=== PATIENT | female | born 1950 | race Caucasian/White ===

== ENCOUNTER 2022-01-23 12:11 | Day surgery (SDC) | payer MEDICARE, OTHER ==
--- NOTE | 2022-01-23 09:37 | HP ---
HISTORY OF PRESENT ILLNESS: This is a patient who presents for colonoscopy and EGD. She has had some reflux as well as indigestion symptoms. Otherwise no abdominal pain, no bleeding, no dysuria, no hematuria, no fever, no shortness of breath, no chest pain, no weight loss. Her bowel movements have been normal. She is also due for screening and has been referred by her primary care provider for screening as well. PAST MEDICAL/SURGICAL HISTORY: Includes arrhythmia, neuropathy. History of breast cancer. She has had a right mastectomy. Hysterectomy. Sinus surgery. Cholecystectomy. CVA. PAST SURGICAL HISTORY: MEDICATIONS: Please see the medication reconciliation. She is on Plavix and has been placed on Lovenox per neurologist. ALLERGIES: LATEX. SOCIAL HISTORY: No tobacco. No alcohol use. FAMILY HISTORY: Mom with cervical cancer. Sister with breast cancer. Brother with lung cancer. Brother with brain cancer. Other members with coronary artery disease. PHYSICAL EXAMINATION: GENERAL: No acute distress. CVS: Regular rate and rhythm. PULMONARY: Nonlabored respirations. ABDOMEN: Soft, nontender, nondistended. EXTREMITIES: Within normal limits. DIAGNOSIS: Reflux, indigestion, due for colon screening. PLAN: EGD and colonoscopy.
[~2022-01-23 12:11] MED LIST: Lactated Ringers 1,000 ML IV SCH
[2022-01-23] MEDS ORDERED: Lactated Ringers 1,000 ML IV ONE ×2 (12:29→15:19)
[2022-01-23] MEDS ORDERED: Versed 2 MG/2 ML Injection ONE (14:17)
[2022-01-23] MEDS ORDERED: DIPRIVAN 200 MG/20 ML IV ONE ×3 (14:17→15:06)
[2022-01-23] MEDS ORDERED: PHENYLEPHRINE HCL ONE (14:49)
[2022-01-23] MEDS ORDERED: GlucaGen 1 MG ONE (15:10)
[2022-01-23 16:03] VITALS: O2SAT 96
[2022-01-23 16:34] VITALS: BP 142/77; PULSE 80
[2022-01-23] MEDS ORDERED: Sodium Chloride 0.9% 10 ML FLUSH Syringe PORT FLUSH PRN (16:39)
--- NOTE | 2022-01-24 10:19 | OP ---
PROCEDURE DATE/TIME: 01/23/2022 1417 PREOPERATIVE DIAGNOSES: 1) Screening for colonoscopy. 2) Reflux, indigestion for EGD. POSTOPERATIVE DIAGNOSES: 1) Gastritis. 2) Peptic ulcer disease. 3) Small hiatal hernia. 4) Colonic polyp. 5) Hemorrhoid. 6) Diverticulosis (minimal). 7) Mild focal hepatic flexure colitis. PROCEDURES: 1) EGD with biopsies. 2) Colonoscopy with cold snare polypectomy. 3) Cold forceps polypectomy. 4) Cold forceps biopsies. 5) Clip placement. PROCEDURE PERFORMED BY: Lesvia Soto M.D. ANESTHESIA: MAC. ESTIMATED BLOOD LOSS: Minimal. COMPLICATIONS: None. SPECIMENS: 1) Gastroesophageal junction at 36 cm; rule out Guzman's disease. 2) Distal esophagus; rule out Zahida. 3) Antral biopsy; rule out Helicobacter pylori. 4) Cecal polyp x2. 5) Hepatic flexure colitis biopsy. HISTORY: This is a patient who for EGD and colonoscopy for the above mentioned diagnoses. Risks, benefits, alternatives, H&P, consent have all been reviewed with her and confirmed. She has held her Plavix. Her Lovenox was held as of yesterday per neurology. She has been appropriately cleared for the procedure. The patient was personally seen by myself preoperatively. H&P, consent re-reviewed and confirmed with her. DESCRIPTION OF PROCEDURE: She was then brought back to the endoscopy suite, laid in the left lateral decubitus position. A complete time out is performed. The scope was inserted into the mouth, oropharynx, down to the esophagus, stomach and duodenum. The duodenum was normal this was visualized to at least the level of D2. The scope was then withdrawn back into the stomach. The patient had some gastritis as well as multiple small ulcers with central craters. At least one ulcer had a small clot that was not able to be washed off. There were also small amounts of old blood in the stomach. I took biopsies in the antrum to rule out Helicobacter pylori and these were sent to pathology and all sites were hemostatic. On a retroflex view, the patient has a small hiatal hernia. She also has some gastritis but there were no other findings and no masses. The scope was then carefully withdrawn back into the distal esophagus. She does have some reflux changes here consistent with esophagitis. I biopsied her to rule out Guzman's with cold forceps and then I took another separate biopsy to rule out Zahida. She has a very small amount of mucous here. I have a very low suspicion for Zahida but we will test this since I do think it is still within the differential this site looked hemostatic as well. The scope is then fully withdrawn. The remainder of her esophagus looked normal and the patient tolerated the procedure well. She was then repositioned for colonoscopy. First, a rectal exam was done. She does have some mildly enlarged hemorrhoids as well as anal tag that appears completely benign and small. The scope is then inserted and gently advanced to the level of the cecum. It was guided easily into the cecum. Her prep however was fair on Aronchick scale which is still satisfactory but fair. She did have quite a bit of liquid stool that was standing that we did have to try to irrigate. Overall, I did not see any large or medium-sized lesions. A very small lesion could be missed because of the prep but I did have a satisfactory review and the majority of the mucosa was able to be seen. As we carefully withdrew the scope, I did identify two polyps and these were in the cecum. They were slightly erythematous, inflammatory appearing. The first one was only about 2 mm in size and was taken with cold forceps in entirety and sent to pathology. The second was immediately under this and this one was about 2 x 2 mm and this was taken with cold snare in entirety this site looked hemostatic. The cold forceps site had a subtle ooze and so I did place a clip here with excellent hemostasis. These were lateral to the appendiceal orifice which is normal. The ileocecal valve looked normal and then we fully withdrew the scope. I did not find any other abnormalities in the cecum. As we withdrew the scope there was one focal area of colitis, this was less than 1 cm in size, very slightly red but appeared to have normal mucosa otherwise meaning that this does not look like polyp tissue at all this was biopsied and sent to pathology. The site looked hemostatic. The remainder of the colon was normal except for mild diverticulosis. In the rectum, she does have mildly enlarged hemorrhoids. I did not find any other concerning findings here. We did irrigate as fast as we could and then the scope was completely withdrawn. The patient tolerated the procedure very well. There were no immediate complications. Tentatively, I am going to plan to do a colonoscopy in three years because of fair prep and two colon polyps, sooner should she have any symptoms or concerns. We will tentatively do her EGD in about two to three months to insure ulcer resolution due to the finding of multiple peptic ulcers and with clots. I have also recommended for proton pump inhibitor and Carafate which I have discussed with her family and sent prescriptions, also diet and lifestyle changes as well which I had discussed with her family. She will be following up with me as an outpatient as well.
== END 2022-01-23 14:40 | disposition home or self-care (01) ==
LOC: SDC 12:11
PROVIDERS: ATTEND Surgery
DX: Z12.11 Encounter for screening for malignant neoplasm of colon (principal); K29.70 Gastritis, unspecified, without bleeding; K63.5 Polyp of colon; R29.2 Abnormal reflex; K30 Functional dyspepsia; K44.9 Diaphragmatic hernia without obstruction or gangrene; K57.30 Diverticulosis of large intestine without perforation or abscess without bleeding; K64.4 Residual hemorrhoidal skin tags
CPT/HCPCS: 99100; J1610; J1642; J2250; J2370; J2704

== ENCOUNTER 2022-05-29 10:03 | Day surgery (SDC) | payer MEDICARE, OTHER ==
[2022-05-29] MEDS ORDERED: Lactated Ringers 1,000 ML IV SCH (10:30)
[2022-05-29] MEDS ORDERED: DIPRIVAN 200 MG/20 ML IV ONE (12:22)
[2022-05-29 13:38] VITALS: BP 117/87
[2022-05-29] MEDS ORDERED: Sodium Chloride 0.9% 10 ML FLUSH Syringe PORT FLUSH PRN (13:48)
[2022-05-29 14:05] VITALS: PULSE 90; O2SAT 95
--- NOTE | 2022-06-01 09:20 | OP ---
PROCEDURE DATE/TIME: 05/29/2022 1223 PREOPERATIVE DIAGNOSIS: Peptic ulcer disease. POSTOPERATIVE DIAGNOSIS: Resolved peptic ulcer disease with residual gastritis. PROCEDURE: EGD with biopsy. PROCEDURE PERFORMED BY: Lesvia Soto M.D. ESTIMATED BLOOD LOSS: Minimal. ANESTHESIA: MAC. COMPLICATIONS: None. SPECIMEN: Antral biopsy. HISTORY: This is a patient who has peptic ulcer disease who has had some continued symptoms and is here for EGD. Risks, benefits and alternatives have been discussed with the patient preoperatively. She understands, agrees and would like to proceed. We will be doing a surveillance for her peptic ulcer disease and seeing if this has worsened or healed. DESCRIPTION OF PROCEDURE: She was taken to the endoscopy suite. She is placed in left lateral decubitus position. A complete time out was performed. The scope was then gently introduced into the mouth, oropharynx down into the esophagus, stomach and duodenum. The duodenum looked normal. In the stomach the patient's ulcers are essentially gone. She does have some residual gastritis but this has significantly improved. There is not any significant blood in the stomach either. We did a retroflex view and looked at the hiatus. There are no concerning lesions in the patient's stomach or elsewhere on the exam. We then unretroflexed and due to the symptoms and the continued gastritis, I did take another antral biopsy with cold forceps and sent this to pathology. The site was hemostatic. We then carefully withdrew the scope taking a good final look and then we looked at the distal esophagus which looked good and the remainder of the esophagus looked healthy. I did not see any concern here. The scope was completely withdrawn. The patient tolerated the procedure very well. There were no immediate complications. Due to her residual gastritis, we have continued her medication as listed on her medication reconciliation. I have discussed all of the findings with her family as well as dietary recommendations. She will be following up with me as an outpatient. She has had significant improvement.
== END 2022-05-29 14:05 | disposition home or self-care (01) ==
LOC: SDC 10:03
PROVIDERS: ATTEND Surgery
DX: K29.70 Gastritis, unspecified, without bleeding (principal); K27.9 Peptic ulcer, site unspecified, unspecified as acute or chronic, without hemorrhage or perforation
CPT/HCPCS: 99100; J1642; J2704

== ENCOUNTER 2023-09-02 14:34 | Emergency (ER) | payer MEDICARE, OTHER ==
[2023-09-02 14:49] VITALS: TEMP 97.9
--- NOTE | 2023-09-02 15:26 | ERPHSYRPT ---
- History of Present Illness Time Seen by Provider: 09/02/23 15:00 Exam Limitations: no limitations Patient Subjective Stated Complaint: C/O cough that started last night. Patient states her coughing spells make her SOB. Denies fever or pain. Triage Nursing Assessment: Patient ambulated back to ER with a mask on. NO SOB noted. SHe is alert and oriented but anxious. Voicing concerns about becoming ill before her scheduled surgery coming up next week. A non-productive cough is present. Lungs clear but diminished; patient not taking very deep breaths when attempting to assess lung sounds. Physician History: 73 years old female presenting to the emergency room complaining of dry cough that she is been having since last evening. The patient is denying any fever or chills, she feels short of breath when she have these coughing spells. She took some cough medication today but did not seem to help. She is not short of breath at rest or when not coughing. She denies any chest pain, no abdominal pain nausea or vomiting. Her had a sinus infection weeks ago ended up with a bronchitis. The patient had all her COVID vaccines series, pneumonia vaccine and the flu vaccines. Allergies/Adverse Reactions: latex Allergy (Verified 09/02/23 14:36) Hives hives and itching adhesive tape Adverse Reaction (Verified 09/02/23 14:36) band aids- peels skin off Home Medications: Gabapentin 600 mg PO TID 09/19/14 [History] Calcium Carbonate/Vitamin D3 [Calcium 600 mg-D3 20 Mcg Cplt] 1 each PO BID 01/09/22 [History] Carvedilol 3.125 mg [Coreg 3.125 MG] 3.125 mg PO BID 01/09/22 [History] Cyanocobalamin (Vitamin B-12) [Vitamin B12] 5,000 mcg PO DAILY 01/09/22 [History] Tamoxifen Citrate 20 mg PO DAILY 01/09/22 [History] Vitamin A 2,400 mcg PO DAILY 01/09/22 [History] methocarbamoL [Methocarbamol] 1 - 2 tab PO Q8H PRN PRN 01/09/22 [History] Cetirizine HCl [Zyrtec] 10 mg PO DAILY PRN PRN 01/23/22 [History] PANTOPRAZOLE 40 mg Tablet [Protonix 40MG Tablet] 1 tab PO DAILY 05/29/22 [History] Sucralfate 1 gm [Carafate 1 GM] 1 tab PO QID 05/29/22 [History] Hx Tetanus, Diphtheria Vaccination/Date Given: Yes Hx Influenza Vaccination/Date Given: Yes Hx Pneumococcal Vaccination/Date Given: Yes Immunizations Up to Date: Yes Travel Risk - International Travel Have you traveled outside of the country in past 3 weeks: No - Coronavirus Screening Are you exhibiting any of the following symptoms?: Yes Symptoms: Cough: New Onset, Shortness of Breath Close contact with a COVID-19 positive Pt in past 14-21 Days: No - Vaccine Status Have you recieved a Covid-19 vaccination: Yes Pecan Gatherer: Unknown - Vaccination Dates Dates if Unknown: ? - Review of Systems Constitutional: No Symptoms Eyes: No Symptoms Ears, Nose, & Throat: No Symptoms Respiratory: Cough Cardiac: No Chest Pain, No Edema, No Syncope Abdominal/Gastrointestinal: No Abdominal Pain, No Nausea, No Vomiting, No Diarrhea Genitourinary Symptoms: No Dysuria Musculoskeletal: No Back Pain, No Neck Pain Skin: No Rash Neurological: No Dizziness, No Focal Weakness, No Sensory Changes Psychological: No Symptoms Endocrine: No Symptoms All Other Systems: Reviewed and Negative - Past Medical History Pertinent Past Medical History: Yes Neurological History: Peripheral Neuropathy, Other ENT History: No Pertinent History Cardiac History: No Pertinent History Respiratory History: No Pertinent History Endocrine Medical History: No Pertinent History Musculoskeletal History: Osteoarthritis GI Medical History: GERD History: No Pertinent History Psycho-Social History: No Pertinent History Female Reproductive Disorders: Breast Cancer Other Medical History: HEAT STROKE 1998, BREAST CA, MASECTOMY. PATIENT IS CURRENTLY CA FREE. CHEMO AND RADIATION. BURNING IN FEET. - Past Surgical History Past Surgical History: Yes Neuro Surgical History: No Pertinent History Cardiac: No Pertinent History Respiratory: No Pertinent History Gastrointestinal: No Pertinent History Genitourinary: No Pertinent History Musculoskeletal: No Pertinent History Female Surgical History: Hysterectomy, Mastectomy, Lumpectomy Other Surgical History: Sinus surgery, Right mastectomy, port - Social History Smoking Status: Never smoker Exposure to second hand smoke: No Drug Use: none Patient Lives Alone: No - Nursing Vital Signs Nursing Vital Signs: Initial Vital Signs Temperature 97.9 F 09/02/23 14:35 Pulse Rate 83 09/02/23 14:35 Respiratory Rate 13 09/02/23 14:35 Blood Pressure 155/69 09/02/23 14:35 O2 Sat by Pulse Oximetry 96 09/02/23 14:35 Pain Scale Pain Intensity 0 - Physical Exam General Appearance: no apparent distress, alert Eye Exam: PERRL/EOMI, eyes nml inspection Ears, Nose, Throat Exam: normal ENT inspection, TMs normal, pharynx normal, moist mucous membranes Neck Exam: normal inspection, non-tender, supple, full range of motion Respiratory Exam: normal breath sounds, lungs clear, No respiratory distress Cardiovascular Exam: regular rate/rhythm, normal heart sounds Gastrointestinal/Abdomen Exam: soft, No tenderness Back Exam: normal inspection, No CVA tenderness, No vertebral tenderness Extremity Exam: normal inspection, normal range of motion Neurologic Exam: alert, oriented x 3, cooperative, normal mood/affect, sensation nml, No motor deficits Skin Exam: normal color, warm, dry, No rash Lymphatic Exam: No adenopathy SpO2: 96 - Course Nursing assessment & vital signs reviewed: Yes Ordered Tests: Active Orders 24 hr Category Date Time Status CHEST 1 VIEW (PORTABLE) Stat Exams 09/02/23 15:26 Taken Lab/Rad Data: Laboratory Results 09/02/23 Range/Units 15:40 Influenza Type A Ag NEGATIVE (NEGATIVE) Influenza Type B Ag NEGATIVE (NEGATIVE) RSV (PCR) POSITIVE (NEGATIVE) SARS-CoV-2 (PCR) NEGATIVE (NEGATIVE) - Progress Progress: unchanged Progress Note: 09/02/23 15:36 73 years old female presenting to the emergency room complaining of a dry cough since yesterday evening. The patient stated that she gets these episodes of dry cough that she cannot breathe. She denies any fever or chills no shortness of breath at rest. Emergency room course and medical decision making. Will check for the COVID-19 antigen, RSV and influenza A/B. Check portable chest x-ray. 09/02/23 16:39 Patient is positive for the RSV virus. Chest x-ray revealed no active disease,no infiltrates. She will be discharged home. She will be prescribed cough medications, albuterol inhaler as needed for shortness of breath and or wheezing. Quarantine for at least 5 days. Follow-up with your family physician in 5 to 7 days. Follow-up as needed and immediately if she is having worsening shortness of breath. - Departure Departure Disposition: Home Clinical Impression: RSV bronchitis Condition: Stable Critical Care Time: No Referrals: JEANNINE LYONS MD [Primary Care Provider] - Follow up/PCP as directed Instructions: Cough, Adult (DC) Additional Instructions: Quarantine for at least 5 days Cough medications, benzonatate 200 mg 3 times a day as needed Delsym cough syrup. Ventolin inhaler as needed for shortness of breath and wheezing. Follow-up immediately for shortness of breath, chest tightness high fever Prescriptions: Benzonatate 200 mg PO QID PRN 10 Days #30 cap PRN Reason: Cough Guaifenesin/Dextromethorphan [Delsym Cough+Chest Cngst Dm Lq] 10 ml PO QID PRN 10 Days PRN Reason: Cough Albuterol 8 gm Mdi Hfa [Ventolin Hfa MDI] 8 gm IH Q4H PRN #1 PRN Reason: Shortness Of Breath
[2023-09-02 16:20] LABS: INFLUENZA A NEGATIVE (NEGATIVE); INFLUENZA B NEGATIVE (NEGATIVE); SARS-CoV-2 Xpert Express NEGATIVE (NEGATIVE)
[2023-09-02 16:22] LABS: RESPIRATORY SYNCTIAL VIRUS POSITIVE (NEGATIVE)
[2023-09-02 16:47] VITALS: O2SAT 96
[2023-09-02 17:03] VITALS: BP 135/74; PULSE 80; RESP 17
--- NOTE | 2023-09-02 19:51 | XRAY ---
Indication: Cough. Comparison: January 09, 2022 Portable chest remains inflated and clear. Heart not enlarged again with left Port-A-Cath. Bony thorax intact again with osteopenia and mild degenerative changes. No new/acute findings.
== END 2023-09-02 17:03 | disposition home or self-care (01) ==
LOC: ED 14:34
DX: J20.5 Acute bronchitis due to respiratory syncytial virus (principal); R05.1 Acute cough; Z79.899 Other long term (current) drug therapy; Z20.828 Contact with and (suspected) exposure to other viral communicable diseases
CPT/HCPCS: 0241U; 71045; 99283